=== PATIENT | male | born 1955 | race Caucasian/White ===

== ENCOUNTER 2024-10-27 08:01 | Day surgery (SDC) | payer OTHER ==
[~2024-10-27] VITALS: Ht 190.5 cm; Wt 93.8 kg
[~2024-10-27 08:01] MED LIST: ASPI81CH; ATEN100; Amitriptyline100 MG; Bactrim Ds Tab1 EACH PO; Balanced Salt Epinephrine Irrigation Solution 500 mL IR SCH; EPIN.3I; LOVA40; Moxifloxacin HCL 0.5 MG/0.1 ML 0.4MLSYR RIGHTEYE SCH; Ondansetron 4 MG SoluTab MM PRN; Oxycodone HCl20 M1; PHENYLEPHRINE\\TROPICAMIDE\\TETRACAINE OPHTHALMIC DILATING SOLN RIGHTEYE PRN; Povidone-Iodine 450 DROP/30 ML Solution ONE; Povidone-Iodine 450 DROP/30 ML Solution RIGHTEYE SCH; Sudogest30 MG; Tetracaine HCl/Pf 0.5% Opth Soln 4 ml ONE
[2024-10-27] MEDS ORDERED: MORP30 PO (08:27)
--- NOTE | 2024-10-27 09:13 | NUR ---
10/27/24 0913 Kim Conner 0908 BP-134/75 P-63 SPO2-99% 10L BLOW BY O2
[2024-10-27 09:20] VITALS: BP 137/81
== END 2024-10-27 09:40 | disposition home or self-care (01) ==
LOC: ORSCSDS 08:01
PROVIDERS: Student in an Organized Health Care Education/Training Program
PROC: 08RJ3JZ Replacement of Right Lens with Synthetic Substitute, Percutaneous Approach (ICD-10-PCS; principal; 2024-10-27 09:30)
DX: H25.811 Combined forms of age-related cataract, right eye (principal); Z96.1 Presence of intraocular lens; I10 Essential (primary) hypertension; Z79.899 Other long term (current) drug therapy
CPT/HCPCS: A9270; V2632